=== PATIENT | female | born 1960 | race Caucasian/White ===

== ENCOUNTER 2020-06-18 08:22 | Outpatient (CLI) | payer BC, SELFPAY ==
--- NOTE | ~2020-06-18 | US_ITS ---
EXAMINATION: US carotid duplex BI DATE: 06/18/2020 09:08 INDICATION: Dizziness and giddiness. TECHNIQUE: Grayscale, color Doppler, and pulsed Doppler images of the cervical carotid arteries were obtained. The degree of vessel stenosis is placed in one of the following categories: normal, <50%, 5 0-69%, >=70% but less than near-occlusion, near-occlusion, or total occlusion. Note that percent sten osis relative to normal distal artery lumen diameter is indirectly measured from velocity measurement s as described by Francis, et al. Radiology 2003; 229:340-346. COMPARISON: None. FINDINGS: Partially visualized are nodules in the thyroid. RIGHT: The right common carotid artery (CCA) peak systolic velocity (PSV) is 96 cm/s. The right internal car otid artery (ICA) PSV is 106 cm/s. The right ICA end-diastolic velocity (EDV) is 41 cm/s. The right I CA/CCA PSV ratio is 1.1. Grayscale and color Doppler images yield an estimate of <50% diameter reduct ion from plaque in the ICA. There is antegrade flow in the right vertebral artery. LEFT: The left CCA PSV is 107 cm/s. The left ICA PSV is 85 cm/s. The left ICA EDV is 31 cm/s. The left ICA/ CCA PSV ratio is 0.8. Grayscale and color Doppler images yield an estimate of <50% diameter reduction from plaque in the ICA. There is antegrade flow in the left vertebral artery. IMPRESSION: 1. <50% stenosis in the right internal carotid artery. 2. <50% stenosis in the left internal carotid artery. 3. Thyroid nodules. Consider thyroid ultrasound for risk stratification. Reviewed, dictated and finalized at location A.
--- NOTE | ~2020-06-18 | XR_ITS ---
EXAMINATION: XR chest 2V DATE: 06/18/2020 08:54 INDICATION: Nicotine dependence, unspecified TECHNIQUE: PA and lateral views of the chest are obtained. COMPARISON: 07/17/2019 FINDINGS: The lungs are hyperinflated but free of acute opacities. There is no pleural effusion or pn eumothorax. The cardiomediastinal silhouette is normal. There is mild thoracic spondylosis. IMPRESSION: 1. No acute cardiopulmonary abnormality. Reviewed, dictated and finalized at location B.
== END 2020-06-18 08:23 | disposition home or self-care (01) ==
LOC: ANHIMG 08:29
PROVIDERS: PCP Family Medicine; Visit Provider Family Medicine
DX: R42 Dizziness and giddiness (principal); G43.009 Migraine without aura, not intractable, without status migrainosus; F17.209 Nicotine dependence, unspecified, with unspecified nicotine-induced disorders; I65.23 Occlusion and stenosis of bilateral carotid arteries; E04.2 Nontoxic multinodular goiter
CPT/HCPCS: 71046; 93880

== ENCOUNTER 2020-07-02 10:27 | Outpatient (CLI) | payer BC, SELFPAY ==
--- NOTE | ~2020-07-02 | US_ITS ---
EXAMINATION: US thyroid DATE: 07/02/2020 11:06 INDICATION: Nontoxic single thyroid nodule TECHNIQUE: Multiple ultrasound images of the thyroid were obtained. COMPARISON: None. FINDINGS: The right thyroid lobe measures 3.9 x 2.1 x 1.6 cm. The left thyroid lobe measures 4.4 x 1.4 x 1.5 c m. In the right thyroid there is a predominantly solid very hypoechoic amount wider than tall nodule measuring 1.7 x 1.9 x 1.5 cm smooth margins and a few internal echogenic foci (TI-RADS 5, highly mirza picious , FNA if >=1.0 cm, annual followup is >0.5 cm). In the left thyroid lobe there is a wider art n tall solid hypoechoic nodule with smooth margins measuring 1.8 x 1.2 x 1.2 cm with peripheral shado wing coarse calcification which measures (TI-RADS 4, moderately suspicious , FNA if >=1.5 cm, annual followup is >1 cm). Normal echotexture, echogenicity and vascular flow throughout the thyroid gland. IMPRESSION: 1. 1.9 cm TI RADS 5 nodules in the right thyroid and 1.7 cm TI RADS 4 nodule in the left thyroid, bot h meeting consensus criteria for ultrasound-guided biopsy which would be recommended. Reviewed, dictated and finalized at location A. IMPRESSION: 1. 1.9 cm TI RADS 5 nodules in the right thyroid and 1.7 cm TI RADS 4 nodule in the left thyroid, both meeting consensus criteria for ultrasound-guided biopsy which would be recommended.
== END 2020-07-02 10:28 | disposition home or self-care (01) ==
LOC: ANHIMG 10:29
PROVIDERS: PCP Family Medicine; Visit Provider Family Medicine
DX: E04.1 Nontoxic single thyroid nodule (principal)
CPT/HCPCS: 76536

== ENCOUNTER 2020-07-14 09:26 | Outpatient (CLI) | payer BC, SELFPAY ==
--- NOTE | ~2020-07-14 | US_ITS ---
EXAMINATION: US FNA w image guidance, US FNA additional DATE: 07/14/2020 10:40 INDICATION: Bilateral thyroid nodules TECHNIQUE: A time-out was performed to verify the patient's name, date of , and procedure to be performed . The procedure and its benefits and risks were discussed with the patient. Risks specifically discus sed included bleeding and infection. The patient understood the risks and agreed to proceed. The neck was prepped and draped in the usual sterile manner. Attention was first turned to the left thyroid n odule. 2 mL 1% lidocaine was used for local anesthesia. 5 passes were made with a 25G needle into th e lesion. Appropriate needle location was documented with continuous sonographic guidance. Attention was then turned to the right thyroid nodule. An additional 2 mm 1% lidocaine was used for local anes thesia. 5 additional passes were made with a 25G needle into the lesion. Sterile bandages were applie d. There were no immediate complications. FINDINGS: Grayscale ultrasound images demonstrate biopsy needles advanced into first a 1.8 cm solid TI RADS 4 l eft thyroid nodule with coarse shadowing calcification. Subsequent images demonstrate biopsy needle a dvanced into a 1.8 cm very hypoechoic nodule with punctate echogenic foci in the right thyroid. On re al-time imaging with movement of the needle within the lesion there was swirling of the echogenic foc i consistent with debris within a complex cyst. The biopsy needles were therefore directed to target the peripheral wall of the lesion. IMPRESSION: 1. Successful ultrasound-guided fine needle aspiration of a 1.8 cm solid left thyroid nodule. 2. Successful ultrasound-guided fine-needle aspiration of a 1.8 cm complex cystic/predominant cystic right thyroid nodule. Reviewed, dictated and finalized at location A. IMPRESSION: 1. Successful ultrasound-guided fine needle aspiration of a 1.8 cm solid left thyroid nodule. 2. Successful ultrasound-guided fine-needle aspiration of a 1.8 cm complex cyst ic/predominant cystic right thyroid nodule.
== END 2020-07-14 09:27 | disposition home or self-care (01) ==
PROVIDERS: PCP Family Medicine; Visit Provider Otolaryngology
DX: E04.1 Nontoxic single thyroid nodule (principal)
CPT/HCPCS: 10005; 10006; 88173; 88305

== ENCOUNTER 2020-09-16 14:45 | Outpatient (CLI) | payer BC, SELFPAY ==
--- NOTE | ~2020-09-16 | MM_ITS ---
EXAMINATION: MM screening elijah BI w estevan HISTORY: Screening mammogram, family history of breast cancer in her mother. TECHNIQUE: Craniocaudal and mediolateral oblique 3-D tomosynthesis images were obtained and synthetic 2-D images were generated. CAD analysis was submitted and interpreted. COMPARISON: No prior mammogram is available for comparison at this institution. BREAST PARENCHYMAL COMPOSITION: The breasts are heterogeneously dense, which may obscure small masses . FINDINGS: RIGHT BREAST: There is no evidence of suspicious mass, calcification, or architectural distortion to suggest malignancy. LEFT BREAST: There is possible architectural distortion in the left breast. IMPRESSION: 1. Possible architectural distortion of the left breast which may represent the patient's baseline ho wever no comparison is currently available. 2. Comparison with prior mammograms is necessary. BI-RADS Category 0: Incomplete: Needs comparison with prior mammograms. Reviewed, dictated and finalized at location A. IMPRESSION: 1. Possible architectural distortion of the left breast which may represent the patient's baseline however no comparison is currently available. 2. Comparison with prior mammograms is necessary. BI-RADS Category 0: Incomplete: Needs comparison with prior mammograms.
--- NOTE | ~2020-09-16 | DEXA_ITS ---
Bone Density Report Name: Vannessa Walker Age: 59 Sex: Female Ethnicity: White Date of : 1960 Indication: postmenopausal; height loss; cancer; hysterectomy; Referring Provider: Anita García Study: Bone densitometry was performed. Exam Date: September 16, 2020 Accession number: [id number] Bone Density: Region BMD T-score Z-score Classification AP Spine (L1-L4) 0.854 -1.8 -0.3 Osteopenia Femoral Neck (Left) 0.559 -2.6 -1.3 Osteoporosis Total Hip (Left) 0.653 -2.4 -1.4 Osteopenia Total Hip Bilateral Avg 0.643 -2.5 -1.5 Osteoporosis Femoral Neck (Right) 0.567 -2.5 -1.2 Osteoporosis Total Hip (Right) 0.632 -2.5 -1.5 Osteoporosis World Health Organization criteria for BMD impression classify patients as: Normal (T-score at or above -1.0), Osteopenia (T-score between -1.0 and -2.5), or Osteoporosis (T-score at or below -2.5). 10-year Fracture Risk: FRAX not reported because: Some T-score for Spine Total or Hip Total or Femoral Neck at or below -2.5 Clinical Information Provided by Patient: Smokes Has used the following medications: Vitamin D Has the following medical conditions: Cancer, Hysterectomy Patient maximum height was 65 Menopause Age: 39 No regular weight bearing exercise Drinks caffeinated beverages Onset of menses at age 13 Number of children 1 Impression: The patient has osteoporosis, based on the Left Femoral Neck T-score. The patient has risk factors, including: smoking. Discussion: INCREASED RISK OF FRACTURE. BONE DENSITY IS UNDESIRABLY LOW AT ONE OR MORE SKELETAL SITES, CONSISTENT WITH POSTMENOPAUSAL OSTEOPOROSIS. This patient's lowest T-score meets the World Health Organization's (WHO) criteria for osteoporosis at one or more sites (T-score -2.5 or below). In untreated patients, the risk of osteoporotic fracture increases approximately two-fold for each 1.0 SD decrease in T-score. Low bone density is not the only risk factor for fracture; also consider factors such as patient's age, frailty or poor health, risk of falling, risk of injury, previous osteoporotic fracture, family history of osteoporosis, cigarette smoking, low body weight, etc. Not everyone with low bone mineral density has osteoporosis; osteomalacia and other metabolic bone disorders should also be considered. Patients who have osteoporosis should be evaluated for specific diseases and conditions (secondary causes) that may cause or contribute to bone loss. The [place] Association [employer] Clinical Endocrinologists (AACE) and National Osteoporosis Foundation (NOF) recommend pharmacologic intervention for all postmenopausal women whose T-score is in this range. The patient should follow a healthful lifestyle (good nutrition with adequate calcium and vitamin D, and appropriate weight-bearing exercise). Follow-Up: Consider a repeat BMD and Ve
== END 2020-09-16 14:46 | disposition home or self-care (01) ==
PROVIDERS: PCP Family Medicine; Visit Provider Student in an Organized Health Care Education/Training Program
DX: Z12.31 Encounter for screening mammogram for malignant neoplasm of breast (principal); Z78.0 Asymptomatic menopausal state; M85.88 Other specified disorders of bone density and structure, other site; M81.0 Age-related osteoporosis without current pathological fracture; M85.852 Other specified disorders of bone density and structure, left thigh; R92.8 Other abnormal and inconclusive findings on diagnostic imaging of breast
CPT/HCPCS: 77063; 77067; 77080

== ENCOUNTER 2020-09-20 08:40 | Outpatient (NON) | payer BC, SELFPAY ==
[2020-09-20 22:13] LABS: SARS-CoV-2 RNA PCR Negative
== END 2020-09-20 08:41 ==
LOC: ANHCOVIDDT 08:41
PROVIDERS: PCP Family Medicine; Visit Provider Family Medicine
DX: Z20.828 Contact with and (suspected) exposure to other viral communicable diseases (principal)
CPT/HCPCS: 87635; C9803; U0003

== ENCOUNTER 2020-09-24 11:39 | Outpatient (CLI) | payer BC, SELFPAY ==
[2020-09-24 12:30] LABS: Influenza Control Positive
== END 2020-09-24 11:40 | disposition home or self-care (01) ==
PROVIDERS: PCP Family Medicine; Visit Provider Family Medicine
DX: R50.9 Fever, unspecified (principal); Z20.828 Contact with and (suspected) exposure to other viral communicable diseases
CPT/HCPCS: 87804

== ENCOUNTER → 2020-10-10 09:24 | Outpatient (CLI) | payer BC, SELFPAY ==
--- NOTE | ~2020-10-10 | MM_ITS ---
EXAMINATION: MM diagnostic mammo unilat LT HISTORY: Possible architectural distortion on screening mammogram TECHNIQUE: Additional 3-D tomosynthesis images of the left breast were performed and synthetic 2-D im ages were generated. CAD analysis was submitted and interpreted. COMPARISON: 09/16/2020, 09/30/2017, 02/15/2013 FINDINGS: No persistent architectural distortion is identified with spot compression of the left [address] st. There is no suspicious mass or calcification. IMPRESSION: 1. No mammographic evidence of malignancy. 2. Recommend routine screening mammography in one year. BI-RADS Category 1: Negative Reviewed, dictated and finalized at location A. WINDER
== END ==
PROVIDERS: PCP Family Medicine; Visit Provider Student in an Organized Health Care Education/Training Program
DX: R92.8 Other abnormal and inconclusive findings on diagnostic imaging of breast (principal)
CPT/HCPCS: 77065

== ENCOUNTER 2020-11-17 10:25 | Outpatient (NON) | payer BC, SELFPAY ==
[2020-11-17 14:24] LABS: Influenza Control Positive
== END 2020-11-17 10:26 ==
LOC: ANHCOVIDDT 10:26
PROVIDERS: PCP Family Medicine; Visit Provider Family Medicine
DX: R50.9 Fever, unspecified (principal)
CPT/HCPCS: 87804

== ENCOUNTER 2021-06-05 08:42 | Outpatient (CLI) | payer BC, SELFPAY ==
--- NOTE | ~2021-06-05 | CT_ITS ---
EXAMINATION:CT lung screening DATE: 06/05/2021 08:57 INDICATION: Personal history of tobacco dependence. Current smoker with 35 pack year history. TECHNIQUE: Computed tomography (CT) of the chest was performed without intravenous contrast. Automate d exposure control and iterative reconstruction technique were employed. The dose-length product (DLP ) was 63.09 mGy-cm. COMPARISON: None. FINDINGS: There is mild scarring at the lung apices. There is mild emphysema. There is mild atelectas is bilaterally. No pleural effusion. The heart size is normal. No pericardial effusion. Calcified per iportal lymph nodes are consistent with old granulomatous disease. There is mild thoracic spondylosis . IMPRESSION: 1. Lung-RADS category 2: Benign appearance or behavior. Continue annual screening with noncontrast lo w-dose chest CT in 12 months. Reviewed, dictated and finalized at location A. IMPRESSION: 1. Lung-RADS category 2: Benign appearance or behavior. Continue annual screeni ng with noncontrast low-dose chest CT in 12 months.
== END 2021-06-05 08:43 | disposition home or self-care (01) ==
LOC: ANHIMG 08:45
PROVIDERS: PCP Family Medicine; Visit Provider Family Medicine
DX: Z87.891 Personal history of nicotine dependence (principal)
CPT/HCPCS: 71271

== ENCOUNTER 2022-01-15 14:51 | Outpatient (CLI) | payer BC, SELFPAY ==
--- NOTE | ~2022-01-15 | MM_ITS ---
EXAMINATION: MM screening elijah BI w estevan HISTORY: Screening mammogram TECHNIQUE: Craniocaudal and mediolateral oblique 3-D tomosynthesis images were obtained and synthetic 2-D images were generated. CAD analysis was submitted and interpreted. COMPARISON: 10/10/2020 diagnostic left mammogram 09/16/2020, 09/30/2017 bilateral screening mammogram examinations. In particular. There is degenerati ve disc orbits are versus BREAST PARENCHYMAL COMPOSITION: MAMMOGRAM FINDINGS: Right breast: There is no evidence of suspicious mass, calcification, or architectural distortion to suggest malignancy in either breast. There has been no suspicious interval change. Left breast: There is suggestion of at least several left breast masses: There is a 4 x 6 mm circumscribed mass in the upper outer left breast. Additional 3.8 mm mass is suggested in the outer mid to lower left breast. There is a 2.7 x 3 mm circumscribed density in the posterior mid outer left breast. No architectural distortion, malignant calcification, skin thickening or retraction of the left breas t is evident. IMPRESSION: 1. Left breast masses 2. Diagnostic left mammogram and left breast ultrasound examination are recommended BI-RADS Category 0: Incomplete: Needs additional imaging evaluation. Reviewed, dictated and finalized at location A. ER MILL OPERATOR IMPRESSION: 1. Left breast masses 2. Diagnostic left mammogram and left breast ultrasound examination are recomme nded BI-RADS Category 0: Incomplete: Needs additional imaging evaluation.
== END 2022-01-15 14:52 | disposition home or self-care (01) ==
LOC: ANHIMG 14:52
PROVIDERS: PCP Family Medicine; Visit Provider Student in an Organized Health Care Education/Training Program
DX: Z12.31 Encounter for screening mammogram for malignant neoplasm of breast (principal); R92.8 Other abnormal and inconclusive findings on diagnostic imaging of breast
CPT/HCPCS: 77063; 77067

== ENCOUNTER 2022-02-02 13:00 | Outpatient (CLI) | payer BC, SELFPAY ==
--- NOTE | ~2022-02-02 | MMUS_ITS ---
EXAMINATION: MM diagnostic elijah LT w esetvan, US breast LT limited HISTORY: Left breast masses on screening mammogram TECHNIQUE: Additional 3-D tomosynthesis images of the left breast were performed and synthetic 2-D im ages were generated. CAD analysis was submitted and interpreted. High resolution limited left breast ultrasound was performed. COMPARISON: 01/15/2022, 10/10/2020, 09/16/2020 FINDINGS: MAMMOGRAPHIC FINDINGS: There is a 6 mm oval, obscured, equal density mass in the 3:00 location in the middle third of the br east 3 cm from the nipple. There is a stable 7 mm mass in the middle third of the central breast 2.5 cm from the nipple. ULTRASOUND: There is a 3 mm round, circumscribed, hypoechoic mass at the 4:00 location 3 cm from the nipple. Ther e appears to be a cluster of microcysts at the 1:00 location near the nipple. There is a 6 mm cyst at the 12:00 location 4 cm from the nipple. There is a 4 mm cyst at the 1:00 location 4 cm from the nip ple. IMPRESSION: 1. Probably benign left breast findings. 2. Recommend 6 month follow-up left diagnostic mammogram and ultrasound. BI-RADS category 3, probably benign findings. Reviewed, dictated and finalized at location A. IMPRESSION: 1. Probably benign left breast findings. 2. Recommend 6 month follow-up left diagnostic mammogram and ultrasound. BI-RADS category 3, probably benign findings.
== END 2022-02-02 13:01 | disposition home or self-care (01) ==
PROVIDERS: PCP Family Medicine; Visit Provider Student in an Organized Health Care Education/Training Program
DX: R92.8 Other abnormal and inconclusive findings on diagnostic imaging of breast (principal); N63.23 Unspecified lump in the left breast, lower outer quadrant; N60.02 Solitary cyst of left breast
CPT/HCPCS: 76642; 77061; 77065; G0279

== ENCOUNTER → 2022-08-31 15:42 | Outpatient (CLI) | payer BC, SELFPAY ==
--- NOTE | ~2022-08-31 | CT_ITS ---
EXAMINATION: CT lung screening DATE: 08/31/2022 15:57 INDICATION: Personal history of nicotine dependence, current smoker with 36 pack year history TECHNIQUE: Computed tomography (CT) of the chest was performed without intravenous contrast. The dose -length product (DLP) was 46.35 mGy-cm. Automated exposure control and iterative reconstruction techn [email or web address] were employed. COMPARISON: 06/05/2021 FINDINGS: There is mild emphysema. There is stable 2 mm nodule of the right middle lobe (image 99). N o suspicious pulmonary nodules are identified. The lungs are free of acute opacities. No pleural effu amari or pneumothorax. There is mild thoracic spondylosis. No pathologically enlarged thoracic lymph n odes are identified. The heart size is normal. IMPRESSION: 1. Lung-RADS category 2: Benign appearance or behavior. Continue annual screening with noncontrast lo w-dose chest CT in 12 months. Reviewed, dictated and finalized at location A. IMPRESSION: 1. Lung-RADS category 2: Benign appearance or behavior. Continue annual screeni ng with noncontrast low-dose chest CT in 12 months.
== END ==
PROVIDERS: PCP Family Medicine; Visit Provider Family Medicine
DX: Z12.2 Encounter for screening for malignant neoplasm of respiratory organs (principal); Z87.891 Personal history of nicotine dependence
CPT/HCPCS: 71271

== ENCOUNTER 2024-02-04 08:52 | Outpatient (CLI) | payer BC, SELFPAY ==
[2024-02-04 09:18] LABS: Basophils Absolute Auto 0.1 K/mm3 (0.0-0.1); Basophils Percent Auto 0.7 % (0.2-1.2); Eosinophils Absolute Auto 0.3 K/mm3 (0-0.3); Eosinophils Percent Auto 3.4 % (0-4.4); Hemoglobin 12.9 g/dL (12.0-15.0); Immature Granulocyte Absolute 0.03 K/mm3 (0.00-0.031); Immature Granulocyte Percent A 0.4 % (0-0.5); Lymphocytes Percent Auto 32.5 % (18.3-44.2); Mean Corpuscular HGB Conc 32.3 g/dl (32-36); Mean Corpuscular Hemoglobin 31.3 pg (26-34); Mean Corpuscular Volume 97.1 fl (80-100); Mean Platelet Volume 9.7 fl (7.4-10.4); Monocytes Absolute Auto 0.5 K/mm3 (0.1-0.6); Monocytes Percent Auto 6.8 % (2.6-8.5); Neutrophils Absolute Auto 4.2 K/mm3 (1.3-6.7); Neutrophils Percent Auto 56.2 % (45.5-73.1); Platelet Count Result 219 k/mm3 (150-375); Red Blood Count 4.12 M/mm3 (4.2-5.4); Red Cell Distribution Width 13.2 % (11.5-14.5); White Blood Count 7.4 K/mm3 (4.5-10.0)
[2024-02-04 09:23] LABS: Appearance Urine Cloudy (Clear); Bacteria Urine None Seen /hpf; Bilirubin Urine Negative (Negative); Blood Urine 1+ (Negative); Color Urine Yellow (Yellow); Glucose Urine UA Negative (Negative); Ketones Urine Negative (Negative); Leukocyte Esterase Ur Trace LEU/UL (Negative); Nitrate Urine Negative (Negative); Non Pathogenic Casts 0-2; Protein Urine Negative (Negative); Specific Grav Ur 1.014 (1.001-1.035); Squamous Epithelial Cell Urine Many /hpf (Few); Urobilinogen Urine 0.2 mg/dL (<2.0); WBC Urine 0-5 /hpf (0-3)
[2024-02-04 09:33] LABS: Add Urine Microscopic? YES
[2024-02-04 09:52] LABS: Free T4 Free Thyroxine 0.83 ng/mL (0.78-2.19)
[2024-02-04 11:16] LABS: Hemoglobin A1C 5.4 % (<5.7)
[2024-02-04 11:24] LABS: Alanine Aminotransferase 19 U/L (6-35); Albumin Level 4.1 g/dL (3.5-5.1); Alkaline Phosphatase 140 U/L (38-126); Anion Gap 5 mmol/L (8-16); Aspartate Amino Transferase 26 U/L (14-36); Bilirubin,Total 0.4 mg/dL (0.2-1.3); Blood Urea Nitrogen 13 mg/dL (7-17); Calcium 9.3 mg/dL (8.4-10.2); Carbon Dioxide 27 mmol/L (22-30); Chloride 111 mmol/L (98-107); Cholesterol 217 mg/dL (0-200); Estimated Glomerular Filt Rate > 60; Glucose 95 mg/dL (65-110); HDL Direct 50 mg/dL; Potassium 3.9 mmol/L (3.4-5.0); Sodium 143 mmol/L (137-145); Triglycerides 306 mg/dL (<150)
[2024-02-04 11:35] LABS: LDL Cholesterol Direct 97 mg/dL
[2024-02-04 12:28] LABS: Vitamin B12 > 1000.0 pg/mL (239-931)
== END 2024-02-04 08:53 | disposition home or self-care (01) ==
LOC: ANHLAB 08:53
PROVIDERS: PCP Family Medicine; Visit Provider Family Medicine
DX: E53.8 Deficiency of other specified B group vitamins (principal); E04.2 Nontoxic multinodular goiter; R73.01 Impaired fasting glucose; E78.2 Mixed hyperlipidemia
CPT/HCPCS: 36415; 80053; 80061; 82607; 83036; 84439; 84443; 85025

== ENCOUNTER 2024-06-26 10:04 | Outpatient (CLI) | payer BC, SELFPAY ==
--- NOTE | ~2024-06-26 | CT_ITS ---
CT Scan of the Chest without Contrast: Clinical Indication: Pulmonary nodule Technique: Contiguous sections were acquired throughout the chest without intravenous contrast. Dose reduction technique was used on this scan by utilizing automated exposure control and iterative recon struction technique. The dose-length product (DLP) was 65.85 mGy-cm. COMPARISON: 08/31/2022 Findings: There is no evidence of any significant mediastinal, hilar or axillary lymphadenopathy. The mediastin al soft tissues appear normal. There is no evidence of pleural or pericardial effusion. Stable 2 mm right middle lobe pulmonary nodule. Mild emphysema noted. Images through the upper abdomen reveal no abnormalities. Impression: Stable 2 mm right middle lobe pulmonary nodule. Mild emphysema. Reviewed, dictated and finalized at [facility]. Impression: Stable 2 mm right middle lobe pulmonary nodule. Mild emphysema.
== END 2024-06-26 10:05 | disposition home or self-care (01) ==
PROVIDERS: PCP Family Medicine; Visit Provider Family Medicine
DX: R91.1 Solitary pulmonary nodule (principal); J43.9 Emphysema, unspecified
CPT/HCPCS: 71250

== ENCOUNTER 2024-10-29 14:01 | Outpatient (CLI) | payer BC, SELFPAY ==
--- NOTE | ~2024-10-29 | DEXA_ITS ---
Bone Density Report Name: REINA CARDOSO Age: 64 Sex: Female Ethnicity: White Date of : 1960 Indication: postmenopausal osteoporosis; height loss; Referring Provider: MIGUEL GOMEZ Study: Bone densitometry was performed. Exam Date: October 29, 2024 Accession number: [id number] Bone Density: Region BMD T-score Z-score Classification AP Spine(L1-L4) 0.872 -1.6 0.2 Osteopenia Femoral Neck (Left) 0.582 -2.4 -0.9 Osteopenia Total Hip (Left) 0.660 -2.3 -1.1 Osteopenia Femoral Neck (Right) 0.575 -2.5 -1.0 Osteoporosis Total Hip (Right) 0.661 -2.3 -1.1 Osteopenia Total Hip Mean 0.661 -2.3 -1.1 Osteopenia World Health Organization criteria for BMD impression classify patients as: Normal (T-score at or above -1.0), Osteopenia (T-score between -1.0 and -2.5), or Osteoporosis (T-score at or below -2.5). 10-year Fracture Risk: FRAX not reported because: Some T-score for Spine Total or Hip Total or Femoral Neck at or below -2.5 Previous Exams: Region Exam Age BMD T-score BMD Change BMD Change Date g/cm2 vs Baseline vs Previous AP Spine (L1-L4) 10/29/2024 64 0.872 -1.6 0.019 (2.2%) 0.019 (2.2%) 09/16/2020 59 0.854 -1.8 Total Hip(Left) 10/29/2024 64 0.660 -2.3 0.007 (1.1%) 0.007 (1.1%) 09/16/2020 59 0.653 -2.4 Total Hip(Right) 10/29/2024 64 0.661 -2.3 0.028 (4.5%)* 0.028 (4.5%)* 09/16/2020 59 0.632 -2.5 *Denotes significance at 95% confidence level, LSC for AP Spine = 0.022 g/cm2, LSC for Total Hip = 0.027 g/cm2 Clinical Information Provided by Patient: Smokes Has used the following medications: Fosamax (i.e. alendronate), Vitamin D Patient maximum height was 65.5 Menopause Age: 39 No regular weight bearing exercise Does not regularly consume dairy products Drinks caffeinated beverages Onset of menses at age 15 Number of children 1 Impression: The patient has osteoporosis, based on the Right Femoral Neck T-score. The patient has risk factors, including: smoking. No significant bone loss was observed. Discussion: INCREASED RISK OF FRACTURE. BONE DENSITY IS UNDESIRABLY LOW AT ONE OR MORE SKELETAL SITES, CONSISTENT WITH POSTMENOPAUSAL OSTEOPOROSIS. This patient's lowest T-score meets the World Health Organization's (WHO) criteria for osteoporosis at one or more sites (T-score -2.5 or below). In untreated patients, the risk of osteoporotic fracture increases approximately two-fold for each 1.0 SD decrease in T-score. Low bone density is not the only risk factor for fracture; also consider factors such as patient's age, frailty or poor health, risk of falling, risk of injury, previous osteoporotic fracture, family history of osteoporosis, cigarette smoking, low body weight, etc. Not everyone with low bone mineral density has osteoporosis; osteomalacia and other metabolic bone disorders should also be considered. Patients who have osteoporosis should be evaluated for specific diseases and conditions (secondary causes) that may cause or contribute to bone loss. The [place] Association of Clinical Endocrinologists (AACE) and National Osteoporosis Foundation (NOF) recommend pharmacologic intervention for all postmenopausal women whose T-score is in this range. The patient should follow a healthful lifestyle (good nutrition with adequate calcium and vitamin D, and appropriate weight-bearing exercise). Follow-Up: Consider a repeat BMD and Vertebral Fracture Assessment (VFA) exam in 2 years or sooner if medically necessary, to reassess this patient's status. Reported by: ARMIDA on 10/29/2024 2:32:00 PM. Reviewed, dictated and finalized at location ALaila NORRIS
== END 2024-10-29 14:02 | disposition home or self-care (01) ==
LOC: ANHIMG 14:03
PROVIDERS: PCP Family Medicine; Visit Provider Nurse Practitioner Obstetrics & Gynecology
DX: M81.0 Age-related osteoporosis without current pathological fracture (principal); M85.89 Other specified disorders of bone density and structure, multiple sites; Z13.820 Encounter for screening for osteoporosis
CPT/HCPCS: 77080

== ENCOUNTER 2025-07-02 02:34 | Day surgery (SDC) | payer BC, SELFPAY ==
[2025-06-14 13:03] VITALS: BMI 25.2
--- OUTSIDE RECORDS SUMMARY | 2025-07-02 02:38 | XMS_ITS | Encounter Summary ---
Author Organization [facility] Healthcare Address [address] [place] [address] Care Team Providers Care Industrial Safety Engineer Name Role Phone Alban De La Garza MD Primary Care Provider [phone] Reason for Visit * Diagnostic Imaging (Routine) - Closed Specialty Diagnoses / Procedures Referred By Kaylie giraldo Referred To Contact Procedures Breast Imaging Screening Outside Reference aMriya Junior NP Phone: tel: fax: Referral ID Status Reason Start Date Expiration Date Visits Re quested Visits Authorized [id number] Closed 04/02/2022 05/02/2023 1 1 Encounter Details Date Type Department Care Team (Late st Contact Info) Description 09/16/2020 Hospital Encounter [facility] [address] [place] [address] [id number] Social History Tobacco Use Types Packs/Day Years Used Date Smoking Tobacco: Every Day Cigarettes 1 40 Smokeless Tobacco: Never Comments No Sex and Gender Information Value Date Recorded Sex Assigned at Not on file Legal Sex Female 3:54 AM LGSW Gender Identity Not on file Sexual Orientation [...] only and have not been reviewed by [facility] Radiology. There will be no report generated by a [facility] Radiologist. Narrative [facility] - 04/02/2022 2:55 PM CDT EXAMINATION: Images For Reference Purposes Only Mariya Junior CERTIFIED PERFORMANCE TECHNOLOGIST IMG MAMMO PROCEDURES Fin al Result [facility] documented in this encounter Visit Diagnoses Not on filedocumented in this encounter Care Teams Industrial Safety Engineer Relationship Specialty Start Date End Date Alban De La Garza MD [address] [address] PCP - General Family Medicine 05/05/18 documented as of this encounter
--- OUTSIDE RECORDS SUMMARY | 2025-07-02 02:38 | XMS_ITS | Clinical Summary ---
Author Organization [facility] Address [address] [place] [id number] Care Team Providers Care Reeling And Tubing Machine Operator Name Role Phone Unavailable Primary Care Provider Unavailabl e Social History Tobacco Use Types Packs/Day Years Used Date Smoking Tobacco: Never Assessed Comments Unknown Sex and Gender Information Value Date Recorded Sex Assigned at Not on file Legal Sex Female 7:17 PM CDT Gender Identity Not on file Sexual Orientation Not on file Plan of Treatment Health Maintenance Due Date Last Done Comments Colorectal Cancer Screening Colonoscopy (10 Years) 1959 Hepatitis C 1977 DTaP, Tdap and Td Vaccines ( 1 - Tdap) 1978 Mammogram Screening 1999 Pneumococcal Vaccine: 50+ Ye ars (1 of 1 - PCV) 2009 Zoster Vaccines (1 of 2) 2009 COVID-19 Vaccine ( - 2023-2 5 season) 2024 Dexa Scan (General) 2024 RSV Immunization or 60+ Years (1 - 1-dose 75+ series) 2034 Meningococcal B Vaccine Aged Out No l onger eligible based on patient's age to complete this topic Meningococcal Vaccine Aged Out No desmond koko eligible based on patient's age to complete this topic RSV Immunizations Under 20 Months Aged Out No longer eligible based on patient's age to complete this topic
--- OUTSIDE RECORDS SUMMARY | 2025-07-02 02:38 | XMS_ITS | Clinical Summary ---
Author Organization [email or web address] Address [address] [place] [address] Care Team Providers Care Motor Vehicle Licence Examiner Name Role Phone Alban De La Garza MD Primary Care Provider [phone] Source Comments [email or web address],non-owned Affiliates and Associated Physician Practices is amultiple site organization consisting of ambulatory clinics and hospital sitesin [place], [place], [place] and [place]. This disclosure is being madepursuant to the Care Everywhere program and may not contain all information available regarding this patient. Last updated 18.[email or web address] Allergies Active Allergy Reactions Criticality Noted Date Comments Penicillins 11/21/2017 Medications * Be aware that medications may not be up to date on this document. Alwaysverify current medications with the patient. escitalopram (LEXAPRO) 20 MG tablet Take 20 mg by mouth once daily Active eszopiclone (LUNESTA) 3 MG tablet Take 3 mg by mouth nightly as needed for Insomnia Active simvastatin (ZOCOR) 20 MG tablet Take 20 mg by mouth at bedtime Active DIAZEPAM PO Active azithromycin (ZITHROMAX) 250 MG tablet 2 tabs today then on tab daily for 4 days 6 tablet 11/21/2017 Active Social History Tobacco Use Types Packs/Day Years Used Date Smoking Tobacco: Every Day Smokeless Tobacco: Never Comments Unknown Sex and Gender Information Value Date Recorded Sex Assigned at Not on file Legal Sex Female 9:54 AM FUNERAL SERVICE MANAGER Gender Identity Not on file Sexual Orientation Not on file Last Filed Vital Signs Vital Sign Reading Time Taken Comments Blood Pressure 100/62 11/21/2017 12:26 PM FUNERAL SERVICE MANAGER Pulse 84 11/21/2017 12:26 PM FUNERAL SERVICE MANAGER Temperature 36.8 C (98.3 F) 11/21/2017 12:26 PM FUNERAL SERVICE MANAGER Respiratory Rate - - Oxygen Saturation - - Inhaled Oxygen Concentration - - Weight 56.2 kg (124 lb) 11/21/2017 12:26 PM FUNERAL SERVICE MANAGER Height 166.4 cm (5' 5.5) 11/21/2017 12:26 PM CS T Body Mass Index 20.32 11/21/2017 12:26 PM FUNERAL SERVICE MANAGER Plan of Treatment Health Maintenance Due Date Last Done Comments BONE DENSITY TESTING 1960 COLOGUARD (AGES 45-75) - COL ON CA SCREENING 1960 COLON MONITORING 1959 COLONOSCOPY - COLON CA SCREENING 1959 CT COLONOGRAPHY - COLON CA SCREENING 1960 Colorectal Cancer Screening 1960 FIT - COLON CA SCREENING 1959 FLEX SIG - COLON CA SCREENING 1960 MAMMOGRAM 1959 HIV SCREENING 1974 HEPATITIS C SCREENING 09/16/1977 DTAP/TDAP/TD VACCINES (1 - Tdap) 1978 PNEUMOCOCCAL VACCINE 50+ (1 of 2 - PCV) 1978 ZOSTER VACCINE (1 of 2) 2009 COVID-19 VACCINE ( - 2023-2 5 season) 2024 DEPRESSION SCREENING 11/21/2024 INFLUENZA VACCINE (#1) 2025 Respiratory Syncytial Virus (RSV) Vaccine Pt: or over 60 yrs (1 - 1-dose 75+ series) 2034 HEPATITIS B VACCINE Aged Out No longe r eligible based on patient's age to complete this topic HIB VACCINE Aged Out No longer eligi ble based on patient's age to complete this topic HPV VACCINE Aged Out No longer eligi ble based on patient's age to complete this topic MENINGOCOCCAL (Group B) VACC INE SHARED DECISION-MAKING Aged Out No longer eligibl e based on patient's age to complete this topic MENINGOCOCCAL GROUPS A/C/Y/W VACCINE Aged Out No longer eligible b ased on patient's age to complete this topic Insurance ANTHEM ANTHEM Care Teams Motor Vehicle Licence Examiner Relationship Specialty Start Date End Date Alban De La Garza MD PCP - General Family Medicine 11/21/17
--- OUTSIDE RECORDS SUMMARY | 2025-07-02 02:38 | XMS_ITS | Clinical Summary ---
Author Organization [facility] Address [address] [place] [id number] Care Team Providers Care Director Federal Name Role Phone Alban De La Garza MD Primary Care Provider [phone] Allergies Active Allergy Reactions Criticality Noted Date Comments Codeine Vomiting Low 11/26/2020 Penicillins Other (See comments) Low 11/02/2011 Reaction: Other Medications azithromycin (ZITHROMAX) 250 mg tablet 0 Active ID NOW COVID-19 Test Kit kit as directed 0 Active diazePAM (VALIUM) 2 mg tablet TK 1 T PO BID PRA 0 Active eletriptan (RELPAX) 40 mg tablet Active ergocalciferol (VITAMIN D) 50,000 unit capsule Take 1 capsule (50,000 Units total) by mouth 0 Active escitalopram (LEXAPRO) 20 mg tablet TK 1 T PO QD 0 Active eszopiclone (LUNESTA) 3 mg tablet TK 1 T PO HS PRF INSOMNIA 0 Active fluconazole (DIFLUCAN) 150 mg tablet 0 Active fluticasone propionate (FLONASE) 50 mcg/actuation nasal spray SHAKE WELL AND USE 1 SPRAY IN EACH NOSTRIL TWICE DAILY 0 Active ibuprofen (ADVIL,MOTRIN) 800 mg tablet TK 1 T PO TID PRF PAIN 0 Active levocetirizine (XYZAL) 5 mg tablet Active nitrofurantoin monohydrate (MACROBID) 100 mg capsule TAKE 1 CAPSULE BY MOUTH EVERY 12 HOURS FOR 7 DAYS 0 Active simvastatin (ZOCOR) 40 mg tablet TK 1 T PO D 0 Active ZOLMitriptan (ZOMIG) 5 mg tablet 0 Active alendronate (FOSAMAX) 70 mg tablet 1 tablet (70 mg total) 5 Active cyclobenzaprine (FLEXERIL) 10 mg tablet Take 1 tablet (10 mg total) by mouth 3 (three) times a day as needed for muscle spasms 5 Active oxyCODONE-acetam inophen (PERCOCET) 5-325 mg per tablet Take by mouth every 6 (six) hours as needed [address] (PROTONIX) 20 mg EC tablet Take 1 tablet (20 mg total) by mouth every morning 5 Active Active Problems Problem Noted Date Diagnosed Date Family history of breast cancer 01/16/2023 Abnormal mammogram 04/06/2022 Encounters Date Type Department Care Team Description 06/28/2025 1:45 PM CDT Office Visit [facility] Dermatology [address] [place] [address] [address] [place] [address] Apurva Cordero MD Seborrheic keratosis (Primary Dx); Dermatofibroma; Diffuse photodamage of skin; Varicose veins of both lower extremities, unspecified whether complicated; History of malignant melanoma; History of nonmelanoma skin cancer from Last 3 Months Surgical History Surgery Date Site/Laterality Comments US UNLISTED PROCEDURE LYMPH SYSTEM 11/05/2013 N/A HYSTERECTOMY Medical History Medical History Date Comments Frequent headaches Depression Arthritis Other osteoporosis without current pathological fracture Family History Medical History Relation Name Comments Breast cancer Father Breast cancer Mother Lung cancer Mother Relation Name Status Comments Father Mother Social History Tobacco Use Types Packs/Day Years Used Date Smoking Tobacco: Every Day Cigarettes 1 40 Smokeless Tobacco: Never Tobacco Cessation:Ready to Q uit: Not Asked; Counseling Given: Not Answered Comments No Sex and Gender Information Value Date Recorded Sex Assigned at Not on file Legal Sex Female 3:54 AM BOAT OAR MAKER Gender Identity Not on file Sexual Orientation Not on file Obstetrics History Last Filed Vital Signs Vital Sign Reading Time Taken Comments Blood Pressure 132/87 02/26/2015 9:09 AM CDT Pulse - - Temperature 36.5 C (97.7 F) 11/26/2020 11:55 AM BOAT OAR MAKER Respiratory Rate - - Oxygen Saturation - - Inhaled Oxygen Concentration - - Weight 56.7 kg (125 lb) 01/18/2025 11:42 AM BOAT OAR MAKER Height 165.1 cm (5' 5) 01/18/2025 11:42 AM BOAT OAR MAKER Body Mass Index 20.8 01/18/2025 11:42 AM BOAT OAR MAKER Plan of Treatment Health Maintenance Due Date Last Done Comments Colon Cancer Screening-Colonoscopy 1959 Depression Screening 1959 Fall Risk Assessment 1959 Hepatitis C Screening 1959 Osteoporosis Screening-Bone Density Scan 1959 DTaP/Tdap/Td Vaccine (1 - Tdap) 1970 Hepatitis B Screening 1977 Pneumococcal vaccine 65+ (1 of 2 - PCV) 1978 Lung Cancer Screening 2009 Zoster Vaccine (1 of 2) 2009 Covid-19 Vaccine (3 - 2023-2 5 season) 2024 03/21/2021, 02/28/2021 Well Visit 65+ 2024 Influenza Vaccine (#1) 2025 Breast Cancer Screening-Mammogram 01/18/2026 01/18/2025, 01/18/2024, 01/14/2023, Additional history exists Procedures Procedure Name Priority Date/Time Associated Diagnosis Comments SCREENING MAMMOGRAM BILATERAL W SKY Schedule Routine, Read Routine (OP Routine) 01/18/2025 1:10 PM BOAT OAR MAKER Abnormal mammogram from Last 3 Months or Most Recently Relevant to Health Maintenance Results * Screening Mammogram Bilateral W Sky (01/18/2025 1:10 PM BOAT OAR MAKER) Anatomical Region Laterality Modality Breast Bilateral Mammography Narrative 01/20/2025 5:52 PM BOAT OAR MAKER Mammogram Technique: Bilateral Digital Breast Tomosynthesis, Bilateral C-view 2D Screening mammogram. Views obtained: bilateral craniocaudal and bilateral mediolateral oblique. Computer Aided Detection was performed. Mammogram Findings: The present examination has been compared to prior imaging studies performed at [facility] on 07/16/2022, 01/14/2023 and 01/18/2024. The breasts are heterogeneously dense, which may obscure small masses. There is no suspicious abnormality in either breast. Impression: There is no mammographic evidence of malignancy. Annual screening mammography is recommended. If supplemental screening is desired, breast MRI would be recommended in this patient with heterogeneously dense breasts. OVERALL FINAL ASSESSMENT: BI-RADS CATEGORY 1: Negative. Procedure Note Robson Valentin MD - 01/20/2025 Mammogram Technique: Bilateral Digital Breast Tomosynthesis, Bilateral C-view 2D Screening mammogram. Views obtained: bilateral craniocaudal and bilateral mediolateral oblique. Computer Aided Detection was performed. Mammogram Findings: The present examination has been compared to prior imaging studies performed at [facility] on 07/16/2022, 01/14/2023 and 01/18/2024. The breasts are heterogeneously dense, which may obscure small masses. There is no suspicious abnormality in either breast. Impression: There is no mammographic evidence of malignancy. Annual screening mammography is recommended. If supplemental screeningis desired, breast MRI would be recommended in this patient with heterogeneously dense breasts. OVERALL FINAL ASSESSMENT: BI-RADS CATEGORY 1: Negative. Result [facility] Alexandria Goncalves NP IMG MAMMO PROCEDURES Final Result from Last 3 Months or Most Recently Relevant to Health Maintenance Insurance [facility] Care Teams Director Federal Relationship Specialty Start Date End Date Alban De La Garza MD [address] [id number] PCP - General Family Medicine 05/05/18
--- OUTSIDE RECORDS SUMMARY | 2025-07-02 02:38 | XMS_ITS | Encounter Summary ---
Author Organization [facility] Healthcare Address [address] [place] [address] Care Team Providers Care Loan Servicing Representative Name Role Phone Alban De La Garza MD Primary Care Provider [phone] Reason for Visit * Diagnostic Imaging (Routine) - Closed Specialty Diagnoses / Procedures Referred By Kaylie giraldo Referred To Contact Procedures Breast Imaging Diagnostic Outside Reference Mariya Junior NP Phone: tel: fax: Referral ID Status Reason Start Date Expiration Date Visits Re quested Visits Authorized [id number] Closed 04/02/2022 05/02/2023 1 1 Encounter Details Date Type Department Care Team (Late st Contact Info) Description 10/10/2020 Hospital Encounter [facility] [address] [place] [phone] Social History Tobacco Use Types Packs/Day Years Used Date Smoking Tobacco: Every Day Cigarettes 1 40 Smokeless Tobacco: Never Comments No Sex and Gender Information Value Date Recorded Sex Assigned at Not on file Legal Sex Female 3:54 AM SERVICES EXECUTIVE Gender Identity Not on file Sexual Orientation Not on file documented as of this encounter Plan of Treatment Not on file documented as of this encounter Procedures Procedure Name Priority Date/Time Associated Diagnosis Comments BREAST IMAGING MG DIAGNOSTIC OUTSIDE REFERENCE Routine 10/10/2020 12:00 AM SERVICES EXECUTIVE documented in this encounter Results * Breast Imaging Diagnostic Outside Reference (10/10/2020 12:00 AM SERVICES EXECUTIVE) Impressions [facility] - 04/02/2022 2:55 PM CDT These images are for Reference purposes only and have not been reviewed by [facility] Radiology. There will be no report generated by a [facility] Radiologist. Narrative [facility] - 04/02/2022 2:55 PM CDT EXAMINATION: Images For Reference Purposes Only us Mariya Junior MOVING CONSULTANT IMG MAMMO PROCEDURES Fin al Result [facility] documented in this encounter Visit Diagnoses Not on filedocumented in this encounter Care Teams Loan Servicing Representative Relationship Specialty Start Date End Date Alban De La Garza MD [address] [address] PCP - General Family Medicine 05/05/18 documented as of this encounter
[2025-07-02 07:28] VITALS: BP 119/65; PULSE 87; RESP 20; TEMP 36.3; O2SAT 96; BMI 25.2
[2025-07-02] MEDS: LACTATED RINGERS 1,000 ML 150 ML IV CONT (07:40)
--- NOTE | 2025-07-02 08:00 | P.PNAN_ITS ---
Anes - Initial Pre Proc Eval Procedure: Operation Date: 07/02/25 08:45 Proposed Procedures p Esophagogastroduodenoscopy - Bean Pizarro MD Date/Time: 07/02/25 08:00 Surgeon: Bean Pizarro MD Pre Op Diagnosis: GERD Patient Data Age: 64 Gender: F Height: 1.63 m Weight: 66.8 kg Last Vital Signs Temp 97.3 F L 07/02/25 07:28 Pulse 87 07/02/25 07:28 Resp 20 07/02/25 07:28 BP 119/65 07/02/25 07:28 Pulse Ox 96 07/02/25 07:28 O2 Del Method Room Air 07/02/25 07:28 Allergies Allergy/AdvReac Type Severity Reaction Status Date / Time Penicillins Allergy Unknown Unknown Verified 07/02/25 07:25 codeine AdvReac Mild vomit Verified 07/02/25 07:25 Home Medications ?Medication ?Instructions ?Recorded ?Confirmed ?Type fluticasone propionate 50 1 spray intranasal BID #54.6 mL 03/01/24 07/02/25 Rx mcg/actuation nasal spray,suspension (Allergy Relief (fluticasone)) cyclobenzaprine 10 mg tablet 10 mg PO TID PRN muscle spasm #60 01/01/25 07/02/25 Rx tabs pantoprazole 20 mg tablet,delayed 20 mg PO QAM #90 tabs 02/19/25 07/02/25 Rx release hyoscyamine sulfate 0.125 mg 0.125 mg sublingual QID PRN 03/21/25 07/02/25 Rx sublingual tablet (Levsin/SL) dyspepsia #60 tabs simvastatin 40 mg tablet 40 mg PO DAILY #90 tabs 03/21/25 07/02/25 Rx diazepam 2 mg tablet 2 mg PO BID PRN anxiety #180 tabs 04/17/25 06/25/25 Rx alendronate 70 mg tablet 70 mg PO WEEKLY #12 tabs 05/15/25 06/25/25 Rx eszopiclone 3 mg tablet 3 mg PO . q.h.s. PRN insomnia #30 06/17/25 07/02/25 Rx tabs escitalopram oxalate 20 mg tablet 20 mg PO DAILY #90 tabs 06/25/25 07/02/25 Rx (Lexapro) ibuprofen 800 mg tablet 800 mg PO TID PRN pain #270 tabs 06/25/25 07/02/25 Rx oxycodone-acetaminophen 5 mg-325 1 tablet PO Q6H PRN pain #20 tabs 06/25/25 07/02/25 Rx mg tablet (Percocet) Patient hx anesthesia problems: none Family hx anesthesia problems: none Results Review: All pre-operative results and documents have been reviewed as part of the pre- operative evaluation. [facility] Past Medical History Medical History IBS (irritable bowel syndrome) Chronic left-sided low back pain without sciatica BMI 25.0-25.9,adult Weight gain, abnormal Osteoarthritis of carpometacarpal joint of right thumb Incidental lung nodule, less than or equal to 3mm stable 2 mm right lower lobe lung nodule on CT screening 08/31/2022. Stable 2 mm right middle lobe nodule with mild emphysema on CT of the chest 06/26/2024. Food poisoning (05/22/24) Gastro-esophageal reflux disease without esophagitis (~04/2024) BMI 23.0-23.9, adult Breast cancer screening by mammogram normal mammogram 01/18/2024 with recheck in 1 year. Hemorrhoids COVID-19 (06/27/23) 4th episode Vitamin B12 deficiency Level normal at greater than 2000 on 03/11/2023. Level greater than 1000 with hemoglobin 12.9 on 02/04/2024. Normal at 473 with folic acid 12.6 and hemoglobin 12.9 on 12/13/2024. COVID-19 (01/15/23) 3rd episode treated with Paxlovid BMI 22.0-22.9, adult COVID (11/19/22) 2nd episode starting 11/19/2022 with positive test 11/21/2022 Dysuria COVID-19 (11/19/21) tested positive at home 11/19/2021 Chronic anxiety BMI 21.0-21.9, adult Bunion of great toe of right foot BMI 20.0-20.9, adult Abnormal fasting glucose Fasting glucose 88 with hemoglobin A1c 5.1 on 03/11/2023. fasting glucose 95 with hemoglobin A1c 5.4 on 02/04/2024. Fasting glucose 100 with hemoglobin A1c 5.6 on 12/13/2024. Acute non-recurrent maxillary sinusitis Osteoporosis (09/16/20) T-score -1.8 at the spine and -2.5 at the hips on 09/16/2020. DEXA on 12/30/2023 with T-score -1.6 spine, -2.4 left hip, -2.5 right hip. Exposure to COVID-19 virus Fever UTI (urinary tract infection) Thyroid nodule incidentally noted on imaging study Bilateral carotid artery disease no evidence of carotid artery disease on carotid artery Doppler on 06/18/2020. Migraine without aura and without status migrainosus, not intractable Vertigo Urinary symptom or sign Personal history of nicotine dependence 1/2 to 1 pack daily for [address] of lung on 06/05/2021 negative with mild emphysema, scarring, and calcified granuloma. Recheck in [address] of the chest on 08/31/2022 reveals mild emphysema with stable 2 mm nodule in the right middle lobe with recheck in 1 year. Vaginal odor Torn meniscus Surgery COPD (chronic obstructive pulmonary disease) H/O vaginal delivery 1983 Melanoma 2012 Surgical History Surgical History Status post medial meniscus repair Both Knees Hx of hysterectomy No Uterus, 2000 Family History Family History Mother Patient's mother is , Onset Age: 80 Family history of lung cancer Family history of malignant neoplasm of breast in first degree relative Acute myocardial infarction Father Family history of malignant neoplasm of male breast Social History Social History Smoking packs per day: 0.75 Smoking cigarettes per day: 15.0 Years smoked: 45 Smoking pack-years: 33.75 Smoking status: Current every day smoker Tobacco type: cigarettes Second hand tobacco smoke exposure: No Alcohol intake: current Substance use: never Lack of Transportation: No Lack of Food: Never True Current Housing: I Have Housing Concerned About Future Housing: No Difficulty Paying Gas/Electric Bills: No Difficulty Paying for Meds: No Currently Unemployed: No Education: High School Diploma/GED Difficulty w/ Childcare or Family Care: No Living arrangements: with family Spiritual care concerns: No Anes - Eval Final PreProcedure Day of Procedure 07/02/25 08:00 Patient weight: normal Lungs: normal air movement Airway: Mallampati scale class II Neurological: alert and oriented Last oral intake: >/= 8 hours ASA classification: II Emergent: no Anesthetic plan: proceed Anesthesia type and monitoring: general GIVS and standard monitoring Results Review: All pre-operative results and documents have been reviewed as part of the pre- operative evaluation. Hyperlipidemia, smoker, 1/2 ppd for 30 years, pt w chr dyspnea since COVID infection, cardiac etiology ruled out. Informed Consent: The patient's anesthetic plan and its attendant risks and benefits were discussed with the patient/family/POA. Questions were solicited and answers provided to the satisfaction of the patient/family/POA.
--- NOTE | 2025-07-02 08:21 | PM.HPGS ---
History of Present Illness History of Present Illness Consent: Risks, benefits, and alternatives have been discussed and questions answered. Patient agrees to proceed with procedure. Chief complaint: GERD Narrative: Vannessa Walker is a 64 year old female with intermittent nausea and abdominal pain Review of Systems Review of Systems: All systems reviewed & are unremarkable except as noted in HPI and below PMFSH Past Medical History Medical History (Updated 07/02/25 @ 08:21 by Bean Pizarro MD) Nausea IBS (irritable bowel syndrome) Chronic left-sided low back pain without sciatica BMI 25.0-25.9,adult Weight gain, abnormal Osteoarthritis of carpometacarpal joint of right thumb Incidental lung nodule, less than or equal to 3mm stable 2 mm right lower lobe lung nodule on CT screening 08/31/2022. Stable 2 mm right middle lobe nodule with mild emphysema on CT of the chest 06/26/2024. Food poisoning (05/22/24) Gastro-esophageal reflux disease without esophagitis (~04/2024) BMI 23.0-23.9, adult Breast cancer screening by mammogram normal mammogram 01/18/2024 with recheck in 1 year. Hemorrhoids COVID-19 (06/27/23) 4th episode Vitamin B12 deficiency Level normal at greater than 2000 on 03/11/2023. Level greater than 1000 with hemoglobin 12.9 on 02/04/2024. Normal at 473 with folic acid 12.6 and hemoglobin 12.9 on 12/13/2024. COVID-19 (01/15/23) 3rd episode treated with Paxlovid BMI 22.0-22.9, adult COVID (11/19/22) 2nd episode starting 11/19/2022 with positive test 11/21/2022 Dysuria COVID-19 (11/19/21) tested positive at home 11/19/2021 Chronic anxiety BMI 21.0-21.9, adult Bunion of great toe of right foot BMI 20.0-20.9, adult Abnormal fasting glucose Fasting glucose 88 with hemoglobin A1c 5.1 on 03/11/2023. fasting glucose 95 with hemoglobin A1c 5.4 on 02/04/2024. Fasting glucose 100 with hemoglobin A1c 5.6 on 12/13/2024. Acute non-recurrent maxillary sinusitis Osteoporosis (09/16/20) T-score -1.8 at the spine and -2.5 at the hips on 09/16/2020. DEXA on 10/29/2024 with T-score -1.6 spine, -2.4 left hip, -2.5 right hip. Exposure to COVID-19 virus Fever UTI (urinary tract infection) Thyroid nodule incidentally noted on imaging study Bilateral carotid artery disease no evidence of carotid artery disease on carotid artery Doppler on 06/18/2020. Migraine without aura and without status migrainosus, not intractable Vertigo Urinary symptom or sign Personal history of nicotine dependence 1/2 to 1 pack daily for [address] of lung on 06/05/2021 negative with mild emphysema, scarring, and calcified granuloma. Recheck in [address] of the chest on 08/31/2022 reveals mild emphysema with stable 2 mm nodule in the right middle lobe with recheck in 1 year. Vaginal odor Torn meniscus Surgery COPD (chronic obstructive pulmonary disease) H/O vaginal delivery 1983 Melanoma 2012 Surgical History Surgical History Status post medial meniscus repair Both Knees Hx of hysterectomy No Uterus, 2000 Family History Family History Mother Patient's mother is , Onset Age: 80 Family history of lung cancer Family history of malignant neoplasm of breast in first degree relative Acute myocardial infarction Father Family history of malignant neoplasm of male breast Social History Social History Smoking packs per day: 0.75 Smoking cigarettes per day: 15.0 Years smoked: 45 Smoking pack-years: 33.75 Smoking status: Current every day smoker Tobacco type: cigarettes Second hand tobacco smoke exposure: No Alcohol intake: current Substance use: never Lack of Transportation: No Lack of Food: Never True Current Housing: I Have Housing Concerned About Future Housing: No Difficulty Paying Gas/Electric Bills: No Difficulty Paying for Meds: No Currently Unemployed: No Education: High School Diploma/GED Difficulty w/ Childcare or Family Care: No Living arrangements: with family Spiritual care concerns: No Meds Home Medications and Allergies Home Medications ?Medication ?Instructions ?Recorded ?Confirmed ?Type fluticasone propionate 50 1 spray intranasal BID #54.6 mL 03/01/24 07/02/25 Rx mcg/actuation nasal spray,suspension (Allergy Relief (fluticasone)) cyclobenzaprine 10 mg tablet 10 mg PO TID PRN muscle spasm #60 01/01/25 07/02/25 Rx tabs pantoprazole 20 mg tablet,delayed 20 mg PO QAM #90 tabs 02/19/25 07/02/25 Rx release hyoscyamine sulfate 0.125 mg 0.125 mg sublingual QID PRN 03/21/25 07/02/25 Rx sublingual tablet (Levsin/SL) dyspepsia #60 tabs simvastatin 40 mg tablet 40 mg PO DAILY #90 tabs 03/21/25 07/02/25 Rx diazepam 2 mg tablet 2 mg PO BID PRN anxiety #180 tabs 04/17/25 06/25/25 Rx alendronate 70 mg tablet 70 mg PO WEEKLY #12 tabs 05/15/25 06/25/25 Rx eszopiclone 3 mg tablet 3 mg PO . q.h.s. PRN insomnia #30 06/17/25 07/02/25 Rx tabs escitalopram oxalate 20 mg tablet 20 mg PO DAILY #90 tabs 06/25/25 07/02/25 Rx (Lexapro) ibuprofen 800 mg tablet 800 mg PO TID PRN pain #270 tabs 06/25/25 07/02/25 Rx oxycodone-acetaminophen 5 mg-325 1 tablet PO Q6H PRN pain #20 tabs 06/25/25 07/02/25 Rx mg tablet (Percocet) Allergies Allergy/AdvReac Type Severity Reaction Status Date / Time Penicillins Allergy Unknown Unknown Verified 07/02/25 07:25 codeine AdvReac Mild vomit Verified 07/02/25 07:25 Vital Signs Vital Signs - 24 hr 07/02/25 07:28 Temperature 97.3 F L Pulse Rate 87 Respiratory Rate 20 Blood Pressure 119/65 Pulse Oximetry 96 Oxygen Delivery Room Air Exam Const: General: comfortable and no acute distress HENMT: Face/Nose/Sinus: Normal nares present Eyes: General: appearance normal, both eyes and all related structures Neck: Neck: no JVD Resp: Auscultation: clear to auscultation bilaterally Cardio: Rate: regular rate Rhythm: regular rhythm GI: Inspection: non-distended GI Palp: Yes Soft to palpation Skin: General skin exam: normal color Neuro: Speech: normal speech Extrem: General: normal to inspection Psych: Mental Status: mental status grossly normal Assessment and Plan Assessment and plan (1) Nausea: Code(s): R11.0 - Nausea Status: Acute Assessment and Plan: egd with bx
--- NOTE | 2025-07-02 08:33 | S_PTH ---
PATIENT: Vannessa Walker LOC: [facility]#:[id number] AGE/SX: 64/F ROOM: RE07/02/[address]: Bean Pizarro MD : 1960 BED: DIS: 07/02/2025 SPEC #: [id number] RECD: 07/02/25 09:46 STATUS: AKUA REMarbin #: [id number] LARRY: 07/02/25 08:[address]: Bean Pizarro DEPT: [facility] Surgical RECD BY: Mac England ENTERED: 07/02/25 09:47 SP TYPE: Surgical OTHR DR: Alban De La Garza MD Tissues: A - Small Bowel Bx B - Gastric Biopsy Procedures: Hematoxylin and Eosin Stain Gross and Microscopic Level 4
[2025-07-02 08:35] VITALS: BP 105/44; PULSE 82; RESP 23; O2SAT 97
[2025-07-02 08:45] VITALS: BP 105/60; PULSE 76; RESP 25; O2SAT 98
[2025-07-02 08:55] VITALS: BP 110/55; PULSE 73; RESP 20; O2SAT 99
== END 2025-07-02 09:00 | disposition home or self-care (01) ==
PROVIDERS: PCP Family Medicine; Referring Provider Family Medicine; Visit Provider Internal Medicine Gastroenterology
PROC: 0DJ08ZZ Inspection of Upper Intestinal Tract, Via Natural or Artificial Opening Endoscopic (ICD-10-PCS; CPT 43239; principal; 2025-07-02 08:45)
DX: K21.9 Gastro-esophageal reflux disease without esophagitis (principal); K58.9 Irritable bowel syndrome, unspecified; M18.11 Unilateral primary osteoarthritis of first carpometacarpal joint, right hand; J44.9 Chronic obstructive pulmonary disease, unspecified; E53.8 Deficiency of other specified B group vitamins; F41.9 Anxiety disorder, unspecified; M81.0 Age-related osteoporosis without current pathological fracture; G89.29 Other chronic pain; M54.50 Low back pain, unspecified; F17.210 Nicotine dependence, cigarettes, uncomplicated; Z79.1 Long term (current) use of non-steroidal anti-inflammatories (NSAID); Z79.891 Long term (current) use of opiate analgesic; Z79.83 Long term (current) use of bisphosphonates; Z98.890 Other specified postprocedural states; Z86.718 Personal history of other venous thrombosis and embolism; Z85.820 Personal history of malignant melanoma of skin; Z80.1 Family history of malignant neoplasm of trachea, bronchus and lung; Z80.3 Family history of malignant neoplasm of breast; Z82.49 Family history of ischemic heart disease and other diseases of the circulatory system
CPT/HCPCS: 43239; 88305; J2003; J2704; J7120

== ENCOUNTER 2025-08-09 08:57 | Outpatient (CLI) | payer BC, SELFPAY ==
--- OUTSIDE RECORDS SUMMARY | 2020-09-16 | XMS_ITS | Encounter Summary ---
Author Organization [facility] Healthcare Address [address] [place] [address] Care Team Providers Care Forest Firefighter Name Role Phone Alban De La Garza MD Primary Care Provider [phone] Reason for Visit * Diagnostic Imaging (Routine) - Closed Specialty Diagnoses / Procedures Referred By Kaylie giraldo Referred To Contact Procedures Breast Imaging Screening Outside Reference Mariya Junior NP Phone: tel: fax: Referral ID Status Reason Start Date Expiration Date Visits Re quested Visits Authorized [id number] Closed 04/02/2022 05/02/2023 1 1 Encounter Details Date Type Department Care Team (Late st Contact Info) Description 09/16/2020 Hospital Encounter [facility] [address] [place] [address] [phone] Social History Tobacco Use Types Packs/Day Years Used Date Smoking Tobacco: Every Day Cigarettes 1 40 Smokeless Tobacco: Never Comments No Sex and Gender Information Value Date Recorded Sex Assigned at Not on file Legal Sex Female 3:54 AM SHERIFF DEPUTY Gender Identity Not on file Sexual Orientation [...] only and have not been reviewed by [facility] Rad[facility]. There will be no report generated by a [facility] Radiologist. Narrative [facility] - 04/02/2022 2:55 PM CDT EXAMINATION: Images For Reference Purposes Only Mariya Junior MUSHROOM FARMER IMG MAMMO PROCEDURES Fin al Result [facility] documented in this encounter Visit Diagnoses Not on filedocumented in this encounter Care Teams Forest Firefighter Relationship Specialty Start Date End Date Alban De La Garza MD [address] [address] PCP - General Family Medicine 05/05/18 documented as of this encounter
--- OUTSIDE RECORDS SUMMARY | 2020-10-10 01:00 | XMS_ITS | Encounter Summary ---
Author Organization [facility] Healthcare Address [address] [place] [address] Care Team Providers Care Treatment Plant Mechanic Name Role Phone Alban De La Garza MD Primary Care Provider [phone] [phone] Reason for Visit * Diagnostic Imaging (Routine) - Closed Specialty Diagnoses / Procedures Referred By Kaylie giraldo Referred To Contact Procedures Breast Imaging Diagnostic Outside Reference Mariya Junior NP Phone: tel: fax: Referral ID Status Reason Start Date Expiration Date Visits Re quested Visits Authorized [id number] Closed 04/02/2022 05/02/2023 1 1 Encounter Details Date Type Department Care Team (Late st Contact Info) Description 10/10/2020 Hospital Encounter [facility] [address] [place] [address] [phone] Social History Tobacco Use Types Packs/Day Years Used Date Smoking Tobacco: Every Day Cigarettes 1 40 Smokeless Tobacco: Never Comments No Sex and Gender Information Value Date Recorded Sex Assigned at Not on file Legal Sex Female 3:54 AM IMPORT/EXPORT CLERK Gender Identity Not on file Sexual Orientation Not on file documented as of this encounter Plan of Treatment Not on file documented as of this encounter Procedures Procedure Name Priority Date/Time Associated Diagnosis Comments BREAST IMAGING MG DIAGNOSTIC OUTSIDE REFERENCE Routine 10/10/2020 12:00 AM IMPORT/EXPORT CLERK documented in this encounter Results * Breast Imaging Diagnostic Outside Reference (10/10/2020 12:00 AM IMPORT/EXPORT CLERK) Impressions [facility] - 04/02/2022 2:55 PM CDT These images are for Reference purposes only and have not been reviewed by [facility] Radiology. There will be no report generated by a [facility] Radiologist. Narrative [facility] - 04/02/2022 2:55 PM CDT EXAMINATION: Images For Reference Purposes Only us Mariya Junior WINDROWER OPERATOR IMG MAMMO PROCEDURES Fin al Result [facility] documented in this encounter Visit Diagnoses Not on filedocumented in this encounter Care Teams Treatment Plant Mechanic Relationship Specialty Start Date End Date Alban De La Garza MD [address] [address] PCP - General Family Medicine 05/05/18 documented as of this encounter
--- OUTSIDE RECORDS SUMMARY | 2025-08-09 09:00 | XMS_ITS | Clinical Summary ---
Author Organization [facility] Address [address] [place] [address] Care Team Providers Care Jewelry Bearing Maker Name Role Phone Alban De La Garza MD Primary Care Provider [phone] Source Comments [facility],non-owned Affiliates and Associated Physician Practices is amultiple site organization consisting of ambulatory clinics and hospital sitesin [place], [place], [place] and [place]. This disclosure is being madepursuant to the Care Everywhere program and may not contain all information available regarding this patient. Last updated 18.[facility] Allergies Active Allergy Reactions Criticality Noted Date [...] on file Legal Sex Female 9:54 AM SIGNAL SUPERVISOR Gender Identity Not on file Sexual Orientation Not on file Last Filed Vital Signs Vital Sign Reading Time Taken Comments Blood Pressure 100/62 11/21/2017 12:26 PM SIGNAL SUPERVISOR Pulse 84 11/21/2017 12:26 PM SIGNAL SUPERVISOR Temperature 36.8 C (98.3 F) 11/21/2017 12:26 PM SIGNAL SUPERVISOR Respiratory Rate - - Oxygen Saturation - - Inhaled Oxygen Concentration - - Weight 56.2 kg (124 lb) 11/21/2017 12:26 PM SIGNAL SUPERVISOR Height 166.4 cm (5' 5.5) 11/21/2017 12:26 PM CS T Body Mass Index 20.32 11/21/2017 12:26 PM SIGNAL SUPERVISOR Plan of Treatment Health Maintenance Due Date [...] 50+ (1 of 2 - PCV) 1978 PAP SMEAR 1980 ZOSTER VACCINE (1 of 2) 2009 DEPRESSION SCREENING 11/21/2024 COVID-19 VACCINE ( - 2023-2 5 season) 2025 INFLUENZA VACCINE (#1) 2025 Respiratory Syncytial Virus [...] to complete this topic Insurance ANTHEM ANTHEM [facility] SELF PAY NO INSURANCE Member Subscriber Plan / Payer (Ef fective for All Dates) Name:Reina Cardoso Member ID:Not on file Relation to Subscriber:Not on file Name:REINA CARDOSO Subscriber ID:Not on file (Home) Address: [address] [place] [id number] Payer ID:Not on file Group ID:Not on file Type:Self Pay Address: [place], [place] Care Teams Jewelry Bearing Maker Relationship Specialty Start Date End Date Alban De La Garza MD PCP - General Family Medicine 11/21/17
--- OUTSIDE RECORDS SUMMARY | 2025-08-09 09:00 | XMS_ITS | Clinical Summary ---
Author Organization [facility] Address [address] [place] [id number] Care Team Providers Care Community Worker Name Role Phone Alban De La Garza MD Primary Care Provider [phone] Allergies Active Allergy Reactions Criticality Noted Date [...] Description 06/28/2025 1:45 PM CDT Office Visit [facility] Medicine Dermatology [address] [place] [address] [address] [place] [address] Apurva Cordero MD Seborrheic keratosis (Primary [...] on file Legal Sex Female 3:54 AM HIDE STRETCHER HAND Gender Identity Not on file Sexual Orientation Not on file Obstetrics History Last Filed Vital Signs Vital Sign Reading Time Taken Comments Blood Pressure 132/87 02/26/2015 9:09 AM CDT Pulse - - Temperature 36.5 C (97.7 F) 11/26/2020 11:55 AM HIDE STRETCHER HAND Respiratory Rate - - Oxygen Saturation - - Inhaled Oxygen Concentration - - Weight 56.7 kg (125 lb) 01/18/2025 11:42 AM HIDE STRETCHER HAND Height 165.1 cm (5' 5) 01/18/2025 11:42 AM HIDE STRETCHER HAND Body Mass Index 20.8 01/18/2025 11:42 AM HIDE STRETCHER HAND Plan of Treatment Health Maintenance Due Date Last Done Comments Colon Cancer Screening-Colonoscopy 1960 Depression Screening 1960 Fall Risk Assessment 1960 Hepatitis C Screening 1960 Osteoporosis Screening-Bone Density Scan 1960 DTaP/Tdap/Td Vaccine (1 - Tdap) 1970 Hepatitis B Screening 1977 Pneumococcal vaccine 65+ (1 of 2 - PCV) 1978 Lung Cancer Screening 2009 Zoster Vaccine (1 of 2) 2009 Well Visit 65+ 2024 Covid-19 Vaccine (3 - 2024-2 6 season) 2025 03/21/2021, 02/28/2021 Influenza Vaccine (#1) 2025 Breast Cancer Screening-Mammogram 01/18/2026 01/18/2025, 01/18/2024, 01/14/2023, Additional history exists Procedures Procedure Name Priority Date/Time Associated Diagnosis Comments SCREENING MAMMOGRAM BILATERAL W SKY Schedule Routine, Read Routine (OP Routine) 01/18/2025 1:10 PM HIDE STRETCHER HAND Abnormal mammogram from Last 3 Months or Most Recently Relevant to Health Maintenance Results * Screening Mammogram Bilateral W Sky (01/18/2025 1:10 PM HIDE STRETCHER HAND) Anatomical Region Laterality Modality Breast Bilateral Mammography Narrative 01/20/2025 5:52 PM HIDE STRETCHER HAND Mammogram Technique: Bilateral Digital Breast Tomosynthesis, Bilateral C-view 2D Screening mammogram. Views obtained: bilateral craniocaudal and bilateral mediolateral oblique. Computer Aided Detection was performed. Mammogram Findings: The present examination has been compared to prior imaging studies performed at [facility] on 07/16/2022, 01/14/2023 and 01/18/2024. The breasts [...] compared to prior imaging studies performed at [facility] on 07/16/2022, 01/14/2023 and 01/18/2024. The breasts are heterogeneously dense, which may obscure small masses. There is no suspicious abnormality in either breast. Impression: There is no mammographic evidence of malignancy. Annual screening mammography is recommended. If supplemental screeningis desired, breast MRI would be recommended in this patient with heterogeneously dense breasts. OVERALL FINAL ASSESSMENT: BI-RADS CATEGORY 1: Negative. Alexandria Goncalves NP IMG MAMMO PROCEDURES Final Result from Last 3 Months or Most Recently Relevant to Health Maintenance Insurance [facility] Care Teams Community Worker Relationship Specialty Start Date End Date Alban De La Garza MD [address] [id number] PCP - General Family Medicine 05/05/18
--- NOTE | 2025-08-09 09:05 | ECG_ITS ---
Test Date: 2025-08-09 09:15:47 Measurements Intervals [place] Rate: 86 P: 55 ID: [id number] QRS: 64 QRSD: 76 T: 55 QT: 353 QTc: 423 Interpretive Statements SINUS RHYTHM NONSPECIFIC ST & T-WAVE ABNORMALITY ABNORMAL ECG No previous ECG available for comparison Electronically Signed On 08-09-2025 13:04:17 CDT by aLne Ramsay M.D.
== END 2025-08-09 08:58 | disposition home or self-care (01) ==
LOC: ANHCARD 08:58
PROVIDERS: PCP Family Medicine; Visit Provider Nurse Practitioner Family
DX: R07.9 Chest pain, unspecified (principal); R94.31 Abnormal electrocardiogram [ECG] [EKG]
CPT/HCPCS: 93005

== ENCOUNTER 2025-08-21 09:41 | Outpatient (CLI) | payer BC, SELFPAY ==
--- OUTSIDE RECORDS SUMMARY | 2020-09-16 | XMS_ITS | Encounter Summary ---
Author Organization [facility] Healthcare Address [address] [place] [address] Care Team Providers Care Administrative Coordinator Name Role Phone Alban De La Garza MD Primary Care Provider [phone] Reason for Visit * Diagnostic Imaging (Routine) - Closed Specialty Diagnoses / Procedures Referred By Kaylie giraldo Referred To Contact Procedures Breast Imaging Screening Outside Reference Mariya Junior NP Phone: tel: fax: Referral ID Status Reason Start Date Expiration Date Visits Re quested Visits Authorized [id number] Closed 04/02/2022 05/02/2023 1 1 Encounter Details Date Type Department Care Team (Late st Contact Info) Description 09/16/2020 Hospital Encounter [facility] [address] [place] [address] [phone] Social History Tobacco Use Types Packs/Day Years Used Date Smoking Tobacco: Every Day Cigarettes 1 40 Smokeless Tobacco: Never Comments No Sex and Gender Information Value Date Recorded Sex Assigned at Not on file Legal Sex Female 3:54 AM HEALTH SERVICES ADMINISTRATOR Gender Identity Not on file Sexual Orientation Not on file documented as of this encounter Plan of Treatment Not on file documented as of this encounter Procedures Procedure Name Priority Date/Time Associated Diagnosis Comments BREAST IMAGING MG SCREENING OUTSIDE REFERENCE Routine 09/16/2020 12:00 AM CDT documented in this encounter Results * Breast Imaging Screening Outside Reference (09/16/2020 12:00 AM CDT) Impressions [facility] - 04/02/2022 2:55 PM CDT These images are for Reference purposes only and have not been reviewed by [facility]. There will be no report generated by a [facility] Radiologist. Narrative [facility] - 04/02/2022 2:55 PM CDT EXAMINATION: Images For Reference Purposes Only Mariya Junior CHANNEL PROCESS SUPERVISOR IMG MAMMO PROCEDURES Fin al Result [facility] documented in this encounter Visit Diagnoses Not on filedocumented in this encounter Care Teams Administrative Coordinator Relationship Specialty Start Date End Date Alban De La Garza MD [address] [address] PCP - General Family Medicine 05/05/18 documented as of this encounter
--- OUTSIDE RECORDS SUMMARY | 2020-10-10 01:00 | XMS_ITS | Encounter Summary ---
Author Organization [facility] Healthcare Address [address] [place] [address] Care Team Providers Care Twine Winder Name Role Phone Alban De La Garza MD Primary Care Provider [phone] [phone] Reason for Visit * Diagnostic Imaging (Routine) - Closed Specialty Diagnoses / Procedures Referred By Kaylie giraldo Referred To Contact Procedures Breast Imaging Diagnostic Outside Reference Mariya Junior NP Phone: tel: fax: Referral ID Status Reason Start Date Expiration Date Visits Re quested Visits Authorized [id number] Closed 04/02/2022 05/02/2023 1 1 Encounter Details Date Type Department Care Team (Late st Contact Info) Description 10/10/2020 Hospital Encounter [facility] [address] [place] [address] [phone] Social History Tobacco Use Types Packs/Day Years Used Date Smoking Tobacco: Every Day Cigarettes 1 40 Smokeless Tobacco: Never Comments No Sex and Gender Information Value Date Recorded Sex Assigned at Not on file Legal Sex Female 3:54 AM POOLING OPERATOR Gender Identity Not on file Sexual Orientation Not on file documented as of this encounter Plan of Treatment Not on file documented as of this encounter Procedures Procedure Name Priority Date/Time Associated Diagnosis Comments BREAST IMAGING MG DIAGNOSTIC OUTSIDE REFERENCE Routine 10/10/2020 12:00 AM POOLING OPERATOR documented in this encounter Results * Breast Imaging Diagnostic Outside Reference (10/10/2020 12:00 AM POOLING OPERATOR) Impressions [facility] - 04/02/2022 2:55 PM CDT These images are for Reference purposes only and have not been reviewed by [facility] Radiology. There will be no report generated by a [facility] Radiologist. Narrative [facility] - 04/02/2022 2:55 PM CDT EXAMINATION: Images For Reference Purposes Only us Mariya Junior FIRE COORDINATOR IMG MAMMO PROCEDURES Fin al Result [facility] documented in this encounter Visit Diagnoses Not on filedocumented in this encounter Care Teams Twine Winder Relationship Specialty Start Date End Date Alban De La Garza MD [address] [address] PCP - General Family Medicine 05/05/18 documented as of this encounter
--- NOTE | 2025-08-21 09:58 | EST_ITS ---
Patient Info Name: Vannessa Walker Age: 64 years : 1960 Gender: Female Ht: 64 in Wt: 147 lbs BSA: 1.75 m2 HR: 81 bpm BP: 125 / 83 mmHg Exam Date: 08/21/2025 9:58 AM Patient Status: O Admit Date: 08/21/2025 Exam Type: CA stress test treadmill A treadmill exercise stress test was performed. Staff Attending Provider: Cierra Joy Exercise Technologist: Alysha Sandra Exercise Physician: Roger Reyes DO Summary 1. 1. Negative Paulie exercise stress test for ischemic ST changes by ECG criteria. 2. 2. Reduced functional capacity, achieving 5 METs of workload. 3. 3. Hypertensive response to exercise. 4. 4. Appropriate HR response to exercise. 5. 5. Appropriate HR recovery at 1 minute post exercise. 6. 6. No imaging with stress testing. 7. 7. Patient informed of the above results. Protocol: Paulie Stress ECG Details Stage: REST Duration (min): 0 min : 53 sec Speed (mph): 0.0 Grade (%): 0 HR (bpm): 80 SBP (mmHg): 125 DBP (mmHg): 83 METS: --- Stage: REST Duration (min): 3 min : 36 sec Speed (mph): 0.0 Grade (%): 0 HR (bpm): 78 SBP (mmHg): 125 DBP (mmHg): 83 METS: --- Stage: STAGE 1 Duration (min): 1 min : 0 sec Speed (mph): 1.7 Grade (%): 10 HR (bpm): 106 SBP (mmHg): 125 DBP (mmHg): 83 METS: --- Stage: STAGE 1 Duration (min): 2 min : 0 sec Speed (mph): 1.7 Grade (%): 10 HR (bpm): 122 SBP (mmHg): 125 DBP (mmHg): 83 METS: --- Stage: STAGE 1 Duration (min): 3 min : 0 sec Speed (mph): 1.7 Grade (%): 10 HR (bpm): 135 SBP (mmHg): 146 DBP (mmHg): 66 METS: --- Stage: STAGE 2 Duration (min): 0 min : 14 sec Speed (mph): 2.5 Grade (%): 12 HR (bpm): 137 SBP (mmHg): 146 DBP (mmHg): 66 METS: --- Stage: RECOVERY Duration (min): 0 min : 45 sec Speed (mph): 0.0 Grade (%): 0 HR (bpm): 138 SBP (mmHg): 146 DBP (mmHg): 66 METS: --- Stage: RECOVERY Duration (min): 1 min : 45 sec Speed (mph): 0.0 Grade (%): 0 HR (bpm): 127 SBP (mmHg): 146 DBP (mmHg): 66 METS: --- Stage: RECOVERY Duration (min): 2 min : 45 sec Speed (mph): 0.0 Grade (%): 0 HR (bpm): 111 SBP (mmHg): 146 DBP (mmHg): 66 METS: --- Stage: RECOVERY Duration (min): 3 min : 45 sec Speed (mph): 0.0 Grade (%): 0 HR (bpm): 99 SBP (mmHg): 225 DBP (mmHg): 87 METS: --- Stage: RECOVERY Duration (min): 4 min : 45 sec Speed (mph): 0.0 Grade (%): 0 HR (bpm): 105 SBP (mmHg): 225 DBP (mmHg): 87 METS: --- Stage: RECOVERY Duration (min): 5 min : 45 sec Speed (mph): 0.0 Grade (%): 0 HR (bpm): 99 SBP (mmHg): 198 DBP (mmHg): 83 METS: --- Stage: RECOVERY Duration (min): 6 min : 45 sec Speed (mph): 0.0 Grade (%): 0 HR (bpm): 99 SBP (mmHg): 198 DBP (mmHg): 83 METS: --- Stage: RECOVERY Duration (min): 7 min : 45 sec Speed (mph): 0.0 Grade (%): 0 HR (bpm): 91 SBP (mmHg): 191 DBP (mmHg): 82 METS: --- Stage: RECOVERY Duration (min): 8 min : 45 sec Speed (mph): 0.0 Grade (%): 0 HR (bpm): 94 SBP (mmHg): 191 DBP (mmHg): 82 METS: --- Stage: RECOVERY Duration (min): 9 min : 45 sec Speed (mph): 0.0 Grade (%): 0 HR (bpm): 92 SBP (mmHg): 147 DBP (mmHg): 81 METS: --- Stage: RECOVERY Duration (min): 10 min : 45 sec Speed (mph): 0.0 Grade (%): 0 HR (bpm): 91 SBP (mmHg): 125 DBP (mmHg): 81 METS: --- Stage: RECOVERY Duration (min): 11 min : 9 sec Speed (mph): 0.0 Grade (%): 0 HR (bpm): 91 SBP (mmHg): 125 DBP (mmHg): 81 METS: --- Rest HR: 78 bpm Peak HR: 139 bpm Rest Sys BP: 125 mmHg Peak Sys BP: 225 mmHg Max Pred HR: 155 bpm % Max Pred HR: 90 % Target HR: 132 bpm Max RPP: 31,275 bpm*mmHg Lindsey Score: -2 BP Response: Patient exhibited a hypertensive response with stress Termination Reason: Reached target heart rate or workload Cardiac Symptoms: Shortness of breath Max ST Seg Deviation: -1.00 mm Total Time: 3 min : 14 sec Rest Wiseman BP: 83 mmHg Peak Wiseman BP: 87 mmHg Angina Score: None Total METS: 5.0 Resting ECG Sinus rhythm. Stress ECG No ST changes. Arrhythmias None. Report Signatures
--- OUTSIDE RECORDS SUMMARY | 2025-08-21 10:16 | XMS_ITS | Clinical Summary ---
Author Organization [facility] Address [address] [place] [id number] Care Team Providers Care Media Analyst Name Role Phone Unavailable Primary Care Provider [...] 2009 Zoster Vaccines (1 of 2) 2009 Dexa Scan (General) 2024 COVID-19 Vaccine ( - 2023-2 5 season) 2025 RSV Immunization or 60+ Years (1 - [...]
--- OUTSIDE RECORDS SUMMARY | 2025-08-21 10:16 | XMS_ITS | Clinical Summary ---
Author Organization [facility] [employer] Address [address] [place] [address] Care Team Providers Care Senior Capital Markets Specialist Name Role Phone Alban De La Gazra MD Primary Care Provider [phone] Source Comments [facility] [employer],non-owned Affiliates and Associated Physician Practices is amultiple site organization consisting of ambulatory clinics and hospital sitesin [place], [place], [place] and [place]. This disclosure is being madepursuant to the Care Everywhere program and may not contain all information available regarding this patient. 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 Gender Identity Not on file Sexual Orientation Not on file Last Filed Vital Signs Vital Sign Reading Time Taken Comments Blood Pressure 100/62 11/21/2017 12:26 PM PETROPHYSICIST Pulse 84 11/21/2017 12:26 PM PETROPHYSICIST Temperature 36.8 C (98.3 F) 11/21/2017 12:26 PM PETROPHYSICIST Respiratory Rate - - Oxygen Saturation - - Inhaled Oxygen Concentration - - Weight 56.2 kg (124 lb) 11/21/2017 12:26 PM PETROPHYSICIST Height 166.4 cm (5' 5.5) 11/21/2017 12:26 PM CS T Body Mass Index 20.32 11/21/2017 12:26 PM PETROPHYSICIST Plan of Treatment Health Maintenance Due Date [...] to complete this topic Insurance [facility] [facility] [facility] SELF PAY NO INSURANCE Member Subscriber Plan / Payer (Ef fective for All Dates) Name:Reina Cardoso Member ID:Not on file Relation to Subscriber:Not on file Name:REINA CARDOSO Subscriber ID:Not on file (Home) Address: [address] [place] [id number] Payer ID:Not on file Group ID:Not on file Type:Self Pay Address: [place], [place] Care Teams Senior Capital Markets Specialist Relationship Specialty Start Date End Date Alban De La Garza MD PCP - General Family Medicine 11/21/17
--- OUTSIDE RECORDS SUMMARY | 2025-08-21 10:16 | XMS_ITS | Clinical Summary ---
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 Gender Identity Not on file Sexual Orientation Not on file Obstetrics History Last Filed Vital Signs Vital Sign Reading Time Taken Comments Blood Pressure 132/87 02/26/2015 9:09 AM CDT Pulse - - Temperature 36.5 C (97.7 F) 11/26/2020 11:55 AM [employer] LAW CLERK Respiratory Rate - - Oxygen Saturation - - Inhaled Oxygen Concentration - - Weight 56.7 kg (125 lb) 01/18/2025 11:42 AM [employer]ERAL DISTRICT LAW CLERK Height 165.1 cm (5' 5) 01/18/2025 11:42 AM [employer] DISTRICT LAW CLERK Body Mass Index 20.8 01/18/2025 11:42 AM [employer] LAW CLERK Plan of Treatment Health Maintenance Due Date [...] Read Routine (OP Routine) 01/18/2025 1:10 PM [employer] LAW CLERK Abnormal mammogram from Last 3 Months or Most Recently Relevant to Health Maintenance Results * Screening Mammogram Bilateral [place] (01/18/2025 1:10 PM [employer] LAW CLERK) Anatomical Region Laterality Modality Breast Bilateral Mammography Narrative 01/20/2025 5:52 PM [employer] LAW CLERK Mammogram Technique: Bilateral Digital Breast Tomosynthesis, Bilateral C-view 2D Screening mammogram. Views obtained: bilateral craniocaudal and bilateral mediolateral oblique. Computer Aided Detection was performed. Mammogram Findings: The present examination has been compared to prior imaging studies performed at [facility] on 07/16/2022, 01/14/2023 and 01/18/2024. The breasts [...] compared to prior imaging studies performed at [facility] on 07/16/2022, 01/14/2023 and 01/18/2024. The breasts [...] Most Recently Relevant to Health Maintenance Insurance [facility] Care Teams Robotics Systems Engineer Relationship Specialty Start Date End Date Alban De La Garza MD [address] [id number] PCP - General Family Medicine 05/05/18
== END 2025-08-21 09:42 | disposition home or self-care (01) ==
PROVIDERS: PCP Family Medicine; Visit Provider Nurse Practitioner Family
DX: R94.31 Abnormal electrocardiogram [ECG] [EKG] (principal); R07.9 Chest pain, unspecified
CPT/HCPCS: 93017